=== PATIENT | male | born 1945 | race Caucasian/White ===

== ENCOUNTER 2018-08-17 10:43 | Inpatient (IN) | payer MEDICARE, MEDICAID ==
[~2018-08-17] VITALS: Ht 170.2 cm; Wt 65.8 kg
[2018-08-17 11:00] LABS: BASOPHILS % (AUTO) 0.2 % (0.0-2.0); EOSINOPHILS % (AUTO) 24.5 % (0.0-6.0); HEMATOCRIT 33 % (39-51); HEMOGLOBIN 10.8 g/dL (13.5-17.5); LYMPHOCYTES % (AUTO) 12.7 % (20.0-44.0); MEAN CORPUSCULAR HGB CONC 33 g/dl (31.0-36.0); MEAN CORPUSCULAR VOLUME 94 fL (80-96); MONOCYTES # (AUTO) 0.8 /CMM (0.1-1.30); MONOCYTES % (AUTO) 10.1 % (2.0-12.0); NEUTROPHILS # (AUTO) 4.3 /CMM (1.8-8.9); NEUTROPHILS % (AUTO) 52.5 % (43.0-81.0); PLATELET COUNT (AUTO) 241 /CMM (150-450); RED BLOOD CELL COUNT(AUTO) 3.49 MIL/uL (4.5-6.0); WHITE BLOOD COUNT (AUTO) 8.2 K/uL (4.3-11.0)
[2018-08-17] MEDS ORDERED: TEMA7.5C12 PO (11:01)
[2018-08-17] MEDS ORDERED: LORA1TAB PO (11:01)
[2018-08-17] MEDS ORDERED: MULT-24 PO (11:01)
[2018-08-17] MEDS ORDERED: METO25TA20 PO (11:01)
[2018-08-17] MEDS ORDERED: MAGN400O6 PO (11:01)
[2018-08-17] MEDS ORDERED: MAG30ORA PO (11:01)
[2018-08-17] MEDS ORDERED: TAMS-12 PO (11:01)
[2018-08-17] MEDS ORDERED: LOPE2CAP40 PO (11:01)
[2018-08-17] MEDS ORDERED: ACET-868 PO (11:01)
[2018-08-17] MEDS ORDERED: RISP0.253 PO (11:01)
[2018-08-17] MEDS ORDERED: AMLO5TAB9 PO (11:01)
[2018-08-17] MEDS ORDERED: NICO-676 TD (11:01)
[2018-08-17 11:07] LABS: CALCIUM, SERUM 8.1 mg/dL (8.5-10.1); CARBON DIOXIDE 29 mmol/L (21-32); CHLORIDE 109 mmol/L (98-107); CREATININE 0.8 mg/dL (0.6-1.3); GLUCOSE 97 mg/dL (74-106); POTASSIUM 4.2 mmol/L (3.5-5.1); SODIUM SERUM 143 mmol/L (136-145); UREA NITROGEN, BLOOD 17 mg/dL (7-18)
--- NOTE | 2018-08-17 11:12 | NUR ---
DIANA, FROM SNF, INCREASED AGITATION, DANGER TO SELF AND OTHERS. REFUSED AM MEDICATIONS. PT IS AMB, VSS, RR EVEN AND UNLABORED. SKIN INTACT, NO ACUTE DISTRESS NOTED. DENIES SOB, DIZZINESS, WEAKNESS, N/V. SEEN BY DR RONQUILLO.
[2018-08-17 11:13] LABS: ACETAMINOPHEN 1 ug/ml (10-30); ALANINE AMINOTRANSFERASE 17 U/L (12-78); ALBUMIN 2.8 g/dL (3.4-5.0); ALCOHOL, BLOOD < 3 mg/dL (0-0); ALKALINE PHOSPHATASE 76 U/L (46-116); ASPARTATE AMINOTRANSFERASE 10 U/L (15-37); BILIRUBIN,DIRECT 0.1 mg/dL (0.0-0.2); BILIRUBIN,TOTAL 0.2 mg/dL (0.2-1.0); SALICYLATE 0.8 mg/dL (2.8-20.0); TOTAL PROTEIN, SERUM 5.9 g/dL (6.4-8.2)
--- NOTE | 2018-08-17 11:28 | NUR ---
CALLED GEOPHYSICAL E LOGGER HEAD WRESTLING COACH FOR PSYCH EVAL
--- NOTE | 2018-08-17 11:53 | NUR ---
URINE SENT TO STAT LAB
--- NOTE | 2018-08-17 11:55 | NUR ---
CALLED DIETARY. THEY WILL SEND SOFT DIET MEAL AFTER THEIR MEAL BREAK ENDS
[2018-08-17 12:04] LABS: APPEARANCE,URINE Clear (CLEAR); BILIRUBIN,URINE Negative (NEGATIVE); BLOOD, URINE Trace-intact Ery/uL (NEGATIVE); COLOR,URINE Yellow (YELLOW); KETONES,URINE Negative (NEGATIVE); LEUKOCYTE ESTERASE ,URINE Negative (NEGATIVE); NITRITE, URINE Negative (NEGATIVE); PROTEIN,URINE Negative (NEGATIVE); UGLUCOSE Negative (NEGATIVE); UROBILINOGEN,URINE 0.2 EU/dL (0.2)
--- NOTE | 2018-08-17 12:17 | NUR ---
FOOD TRAY PROVIDED, PT IS CALM AND COOPERATIVE. NO COMPLAINTS AT THIS TIME. WILL CONT TO MONITOR.
[2018-08-17 12:19] LABS: BACTERIA,URINE None seen /HPF (None Seen); RBC,URINE 0-2 /HPF (0-2); SQUAMOUS EPITHELIAL CELL,UR Few /HPF (None Seen); WBC,URINE 0-2 /HPF (0-3)
[2018-08-17 12:34] LABS: EOSINOPHILS % (MANUAL) 27 % (0-4); LYMPHOCYTES % (MANUAL) 10 % (16-48); MONOCYTES % (MANUAL) 8 % (0-11.0); NEUTROPHILS % (MANUAL) 55 (42-76)
--- NOTE | 2018-08-17 12:58 | NUR ---
GPS BED GIVEN 212A
--- NOTE | 2018-08-17 13:10 | NUR ---
LEFT MESSAGE FOR DISTRICT ATTORNEY ADULT PROTECTIVE CASEWORKER ABOUT ETA. AWAITING HIS CALL BACK
--- NOTE | 2018-08-17 13:20 | NUR ---
SHANIA CALLED TO INFROM ER THAT SPORTS STATISTICIAN CLINICIAN WILL ARRIVE AFTER HE FINISHES A FIELD CALL.
--- NOTE | 2018-08-17 13:39 | NUR ---
LOW HEEL BUILDER CLINICIAN CALLED TO INFORM ER THAT HE WAS STILL ON HIS FIELD CALL AND WOULD ARRIVE ONCE HE WAS FINISHED
--- NOTE | 2018-08-17 14:06 | NUR ---
Patient is resting comfortably in bed with eyes closed. Easily aroused. VSS
[2018-08-17] MEDS ORDERED: OLANZAPINE 5 MG TABLET PO ONE (14:30)
--- NOTE | 2018-08-17 14:30 | NUR ---
PT SPITTING AT ME WHEN TRYING TO GIVE PO MEDICATION. REQUEST IM ROUTE FROM .
[2018-08-17] MEDS ORDERED: OLANZAPINE 5 MG TABLET ONE (14:33)
[2018-08-17] MEDS ORDERED: OLANZAPINE 10 MG VIAL IM ONE (14:38)
--- NOTE | 2018-08-17 14:50 | NUR ---
ZYPREXA 5MG GIVEN IM LEFT VASTUS LATERALIS PER MD ORDER. ORDER NOT SHOWING IN eMAR.
--- NOTE | 2018-08-17 17:10 | NUR ---
report given to tiago ignacio f or olivia; pt will be transported to gps via [facility] with emt
[2018-08-17] MEDS ORDERED: risperiDONE 0.25 MG TABLET PO SCH (17:30)
[2018-08-17] MEDS ORDERED: MAG HYDROX/AL HYDROX/SIMETH 30 ML UDC PO PRN ×2 (17:30→18:00)
[2018-08-17] MEDS ORDERED: MAGNESIUM HYDROXIDE 30 ML UDC PO PRN ×2 (17:30→18:00)
[2018-08-17] MEDS: TAMSULOSIN 0.4 MG CAP.SR.24H PO SCH (17:30)
[2018-08-17] MEDS ORDERED: LOPERAMIDE HCL (2 MG CAP) 2 MG CAPSULE PO PRN (17:30)
[2018-08-17] MEDS ORDERED: ACETAMINOPHEN 325 MG TABLET PO PRN (18:00)
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
--- NOTE | 2018-08-17 19:30 | NUR ---
GPS RN NOTE, RECEIVED PATIENT AWAKE AND IN ROOM NO S/S OR COMPLAINTS OF PAIN AT THIS TIME. PATIENT IS DISPLAYING NO S/S OF APPARENT DISTRESS AT THIS TIME. PATIENT BREATHING IS UNLABORED WITH EQUAL RISE AND FALL OF THE CHEST. PATIENT IS ALERT AND ORIENTED X 1 ON ROOM AIR WITH A SPO2 0F 99%. PATIENT IS MED COMPLIANT, DISORGANIZED, DEPRESSED, COOPERATIVE, AND NEEDS REORIENTATION. PATIENT DENIES SUICIDE AND HOMICIDAL IDEATIONS AT THIS TIME. PATIENT ASSISTED WITH TURNING AND REPOSITIONING Q2HR AND PRN FOR COMFORT AND CIRCULATION. PATIENT HAS NO NEEDS AT THIS TIME. PATIENT EDUCATED ON THE USE OF THE CALL RODRIGUEZ. PATIENT BED SIDE RAILS ARE UP X 2 FOR SAFETY, BED IS LOCKED AND LOW. WILL CONTINUE TO MONITOR AND MAINTAIN SAFETY Q15 MIN WITH THE HELP OF STAFF.
[2018-08-17 19:36] VITALS: BP 146/88
[2018-08-18 08:00] VITALS: BP 143/82
[2018-08-18] MEDS: MULTIVITAMINS,THERAGRAN 1 UDTAB TABLET PO SCH (09:15)
[2018-08-18] MEDS: NICOTINE PATCH (14MG) 14 MG PATCH.TD24 TD SCH (09:15)
[2018-08-18] MEDS: TAMSULOSIN 0.4 MG CAP.SR.24H PO SCH ×2 (09:16→17:49)
[2018-08-18] MEDS: ACETAMINOPHEN 325 MG TABLET PO PRN (09:16)
[2018-08-18] MEDS: METOPROLOL TARTRATE 25 MG TABLET PO SCH ×2 (09:16→17:49)
[2018-08-18] MEDS: AMLODIPINE BESYLATE 5 MG TABLET PO SCH (09:16)
--- NOTE | 2018-08-18 09:22 | NUR ---
GPS/RN-NOTES PATIENT REQUESTING TYLENOL FOR BACK PAIN. TYLENOL 650MG P.O GIVEN PRN ORDER.
[2018-08-18 09:28] LABS: ALANINE AMINOTRANSFERASE 25 U/L (12-78); ALBUMIN 3.1 g/dL (3.4-5.0); ALKALINE PHOSPHATASE 76 U/L (46-116); ASPARTATE AMINOTRANSFERASE 17 U/L (15-37); BILIRUBIN,TOTAL 0.3 mg/dL (0.2-1.0); CALCIUM, SERUM 8.2 mg/dL (8.5-10.1); CARBON DIOXIDE 27 mmol/L (21-32); CHLORIDE 107 mmol/L (98-107); CREATININE 0.8 mg/dL (0.6-1.3); GLUCOSE 81 mg/dL (74-106); SODIUM SERUM 144 mmol/L (136-145); TOTAL PROTEIN, SERUM 6.5 g/dL (6.4-8.2); UREA NITROGEN, BLOOD 21 mg/dL (7-18)
[2018-08-18 09:47] LABS: CHOLESTEROL 141 mg/dL (<200); HDL CHOLESTEROL 45 mg/dL (40-60); LDL 89 mg/dL (0-99); TRIGLYCERIDES 66 mg/dL (30-150)
[2018-08-18] MEDS: LORAZEPAM 0.5 MG TABLET PO PRN ×2 (09:56→22:25)
--- NOTE | 2018-08-18 10:01 | NUR ---
GPS/RN-NOTES PATIENT STATED" I NEED MY ATIVAN TO CALM ME DOWN,I'M VERY ANXIOUS". ATIVAN 1MG P.O GIVEN PRN ORDER. WILL CONT. MONITORING FOR SAFETY AND BEHAVIOR.
--- NOTE | 2018-08-18 10:45 | NUR ---
LEW called the number on the face sheet ([phone]) to find out what the relationship is to the pt because there was no name for the number. When the SW called, she found out that the number listed was for [facility].
[2018-08-18 16:00] VITALS: BP 111/70
[2018-08-18] MEDS ORDERED: HALOPERIDOL 1 MG TABLET PO SCH (17:00)
[2018-08-18] MEDS: DIVALPROEX SODIUM 250 MG TABLET.DR PO SCH ×2 (17:00→17:49)
[2018-08-18] MEDS: BENZTROPINE MESYLATE (1 MG) 1 MG TABLET PO SCH ×2 (17:00→17:49)
--- NOTE | 2018-08-18 17:34 | NUR ---
GPS/RN-NOTES HALDOL 2MG P.O NOT ADMINISTER AT THIS TIME DUE TO HALDOL TABLETS IS OUT OF STOCK PER PHARMACY ( [facility]) SHE WILL CHANGE IT TO LIQUID.
--- NOTE | 2018-08-18 17:53 | NUR ---
GPS/RN-NOTES PATIENT REFUSED DEPAKOTE 250MG AND COGENTIN 0.5MG P.O. STATED" I DON'T NEED THESE MEDICATIONS". EXPLAINED RISK AND BENEFITS BUT PATIENT STILL REFUSED.OFFERED X3
[2018-08-18] MEDS: LIDOCAINE 5% (PATCH) 1 EA PATCH TP SCH (18:49)
[2018-08-18 19:58] VITALS: BP 145/85
[2018-08-18] MEDS: TEMAZEPAM 7.5 MG CAPSULE PO PRN (21:19)
[2018-08-19 08:00] VITALS: BP 110/60
[2018-08-19] MEDS: BENZTROPINE MESYLATE (1 MG) 1 MG TABLET PO SCH ×3 (09:00→16:51)
[2018-08-19] MEDS: MULTIVITAMINS,THERAGRAN 1 UDTAB TABLET PO SCH (09:00)
[2018-08-19] MEDS: HALOPERIDOL LACTATE 10 MG/5 ML UDC PO SCH ×3 (09:00→16:51)
[2018-08-19] MEDS: DIVALPROEX SODIUM 250 MG TABLET.DR PO SCH ×3 (09:00→16:51)
[2018-08-19] MEDS: METOPROLOL TARTRATE 25 MG TABLET PO SCH ×2 (09:11→16:51)
[2018-08-19] MEDS: TAMSULOSIN 0.4 MG CAP.SR.24H PO SCH ×2 (09:12→16:51)
[2018-08-19] MEDS: NICOTINE PATCH (14MG) 14 MG PATCH.TD24 TD SCH (09:13)
[2018-08-19] MEDS: AMLODIPINE BESYLATE 5 MG TABLET PO SCH (09:29)
[2018-08-19] MEDS: LORAZEPAM 0.5 MG TABLET PO PRN ×2 (09:49→16:55)
--- NOTE | 2018-08-19 11:37 | NUR ---
GPS RN NOTED : RECEIVED PATIENT AWAKE,IN THE DINNING ROOM INTERACTING WITH PEERS.PT REQUEST ATIVAN 1 MG PO PRN DUE TO ANXIETY, REFUSED ALL PSYCH MEDICATIONS . ALL NEEDS ATTENDED AND ANTICIPATED. WILL CONT. MONITORING Q15 MINS. FOR SAFETY AND BEHAVIOR.
--- NOTE | 2018-08-19 13:50 | NUR ---
Group note: Pt attended a group session on 08/19/18 at 11AM discussing the topic of what their goals are for when they are in the hospital and once they are discharged. S: Pt stated, I lost my identity in the last couple of years and I want to work on regaining who I was. O: Pt was present during the group session and was cooperative. Pt appeared to be in a depressed mood and presented with a calm affect. Pt maintained appropriate eye contact and tone of voice throughout the group. Pt was engaged with the rest of the group members. A: Pt understood that he needs to get back into a life pattern that he had before he can feel like his old self once again. P: Pt will continue milieu treatment and medication stabilization.
[2018-08-19 16:00] VITALS: BP 119/54
[2018-08-19] MEDS: LIDOCAINE 5% (PATCH) 1 EA PATCH TP SCH (18:53)
[2018-08-19 19:54] VITALS: BP 124/74
[2018-08-19] MEDS: TEMAZEPAM 7.5 MG CAPSULE PO PRN (21:29)
[2018-08-20 08:00] VITALS: BP 131/81
[2018-08-20] MEDS: HALOPERIDOL LACTATE 10 MG/5 ML UDC PO SCH ×3 (09:03→16:56)
[2018-08-20] MEDS: DIVALPROEX SODIUM 250 MG TABLET.DR PO SCH ×3 (09:04→16:56)
[2018-08-20] MEDS: METOPROLOL TARTRATE 25 MG TABLET PO SCH ×2 (09:04→17:10)
[2018-08-20] MEDS: BENZTROPINE MESYLATE (1 MG) 1 MG TABLET PO SCH ×3 (09:04→16:56)
[2018-08-20] MEDS: TAMSULOSIN 0.4 MG CAP.SR.24H PO SCH ×2 (09:04→16:56)
[2018-08-20] MEDS: AMLODIPINE BESYLATE 5 MG TABLET PO SCH (09:05)
[2018-08-20] MEDS: NICOTINE PATCH (14MG) 14 MG PATCH.TD24 TD SCH (09:05)
[2018-08-20] MEDS: MULTIVITAMINS,THERAGRAN 1 UDTAB TABLET PO SCH (09:05)
[2018-08-20] MEDS: LORAZEPAM 0.5 MG TABLET PO PRN ×3 (09:12→20:09)
--- NOTE | 2018-08-20 09:12 | NUR ---
rn notes administered ativan 1 mg po prn for anxiety per patient request, v/s taken bp 131/84, p-84, continued monitoring.
[2018-08-20] MEDS: ACETAMINOPHEN 325 MG TABLET PO PRN ×2 (09:58→15:31)
--- NOTE | 2018-08-20 09:58 | NUR ---
rn notes administered tylenol 650 mg po prn for generalized pain 5/10 per patient request. continued monitoring.
--- NOTE | 2018-08-20 12:35 | NUR ---
Initial Discharge Plan: [facility] located at [address] [place] [id number]; ([phone]). Per pt, he would not like to return there. SW will work with the pt and the MD regarding appropriate discharge planning. SW will form a safe and proper discharge.
--- NOTE | 2018-08-20 15:30 | NUR ---
rn notes administered ativan 1 mg po prn for anxiety, and tylenol 650 mg po prn for generalized pain per patient request. v/s stable. continued monitoring.
[2018-08-20 16:00] VITALS: BP 121/60
[2018-08-20] MEDS: HYDROCODONE/APAP 5/325MG 1 EACH TABLET PO PRN (18:01)
--- NOTE | 2018-08-20 18:01 | NUR ---
RN NOTES ADMINISTERED NARCO 5/325 MG PO PRN FOR CHRONIC GENERALIZED PAIN 03/11 PER PATIENT REQUEST, V/S TAKEN BP -125/ 72, P-94. CONTINUED MONITORING.
[2018-08-20] MEDS: LIDOCAINE 5% (PATCH) 1 EA PATCH TP SCH (18:47)
[2018-08-20 20:00] VITALS: BP 117/71
[2018-08-20] MEDS: TEMAZEPAM 7.5 MG CAPSULE PO PRN (20:47)
[2018-08-21 08:00] VITALS: BP 131/73
[2018-08-21] MEDS: AMLODIPINE BESYLATE 5 MG TABLET PO SCH (09:39)
[2018-08-21] MEDS: DIVALPROEX SODIUM 250 MG TABLET.DR PO SCH ×3 (09:39→17:59)
[2018-08-21] MEDS: MULTIVITAMINS,THERAGRAN 1 UDTAB TABLET PO SCH (09:39)
[2018-08-21] MEDS: NICOTINE PATCH (14MG) 14 MG PATCH.TD24 TD SCH (09:39)
[2018-08-21] MEDS: HALOPERIDOL LACTATE 10 MG/5 ML UDC PO SCH ×3 (09:40→17:59)
[2018-08-21] MEDS: BENZTROPINE MESYLATE (1 MG) 1 MG TABLET PO SCH ×3 (09:40→17:59)
[2018-08-21] MEDS: TAMSULOSIN 0.4 MG CAP.SR.24H PO SCH ×2 (09:40→17:59)
[2018-08-21] MEDS: METOPROLOL TARTRATE 25 MG TABLET PO SCH ×2 (09:40→17:00)
[2018-08-21] MEDS: HYDROCODONE/APAP 5/325MG 1 EACH TABLET PO PRN ×2 (11:35→18:36)
--- NOTE | 2018-08-21 15:26 | NUR ---
LEW faxed a referral to [facility] with attention to Stefanie to the fax number: [phone].
[2018-08-21 16:00] VITALS: BP 100/59
[2018-08-21] MEDS: LIDOCAINE 5% (PATCH) 1 EA PATCH TP SCH (18:36)
--- NOTE | 2018-08-21 19:51 | NUR ---
RN NOTES: SITTING COMFORTABLY ON THE BED SIDE, ASSESSED FOR PAIN HE SAID STILL 6/10, EATING HIS JELLO. NON PHARMACOLOGIC INTERVENTION RENDERED.
[2018-08-21 20:00] VITALS: BP 107/63
[2018-08-21] MEDS: LORAZEPAM 0.5 MG TABLET PO PRN (20:27)
--- NOTE | 2018-08-21 20:28 | NUR ---
RN NOTES: AMBULATE USING FWW TO THE TV ROOM, ATIVAN GIVEN PER PATIENT REQUEST, HE SAID"NO SLEEPING PILL TONIGHT ILL TRY TO SLEEP WITHOUT IT", RESPECT PATIENT REQUEST.ACCOMPANIED BACK TO HIS ROOM, MADE COMFORTABLE IN BED.
[2018-08-21] MEDS: TEMAZEPAM 7.5 MG CAPSULE PO PRN (22:55)
--- NOTE | 2018-08-21 22:56 | NUR ---
RN NOTES: LYING ON BED TRYING TO SLEEP, HE WENT TO BATHROOM TO E, WHEN HE RETUNED HE REQUEST FOR HIS SLEEPING PILL, "I WANT RESTORIL 7.5 MG ONLY, DO NOT GIVE ME 2 CAPSULE, I WANT 1 CAPSULE ONLY", CHARGE NURSE NOTIFIED PATIENT, TOOK 1 CAP IN CUBIX, GIVEN RESTORIL 7.5 MG 1 CAP PER PATIENT REQUEST.
--- NOTE | 2018-08-21 23:57 | NUR ---
RN NOTES: LATE ENTRY FOR 2102: CAME AND SEE THE PATIENT, NOTIFIED PATIENT WAS COOPERATIVE, NO SIGN OF AGITATION OR RESISTANCE, HE TOOK HIS MEDICATION. NO NEW ORDERS. Addendum: 08/22/18 at 0218 by DINORA BRANHAM RN -FOR SERUM DEPAKOTE LEVEL TOMORROW BEFORE MORNING DOSE.
[2018-08-22] MEDS: HYDROCODONE/APAP 5/325MG 1 EACH TABLET PO PRN ×3 (01:57→15:50)
--- NOTE | 2018-08-22 02:02 | NUR ---
RN NOTES: -AWAKE WENT TO THE NURSES STATION, AMBULATORY,ASKING FOR HIS PAIN MEDICATION, /, GENERALIZED,NORCO PRN GIVEN, THEN HE REQUEST TO HAVE SNACK, TUNA SANDWICH GIVEN PER PATIENT REQUEST.NON PHARMACOLOGIC INTERVENTION RENDERED.
--- NOTE | 2018-08-22 02:58 | NUR ---
RN NOTES: ABLE TO SLEEP AND REST, AFEBRILE [id number]%RA,SLEEPING COMFORTABLY IN BED,ON CLOSE WATCH.BED LOW AND LOCKED.FALL PRECAUTION OBSERVED.
[2018-08-22 08:00] VITALS: BP 122/76
[2018-08-22] MEDS ORDERED: OXYB5TAB PO (09:11)
[2018-08-22] MEDS ORDERED: LEVO100T9 PO (09:11)
[2018-08-22] MEDS ORDERED: FINA5TAB11 PO (09:11)
[2018-08-22] MEDS: HALOPERIDOL LACTATE 10 MG/5 ML UDC PO SCH ×3 (09:13→17:29)
[2018-08-22] MEDS: MULTIVITAMINS,THERAGRAN 1 UDTAB TABLET PO SCH (09:13)
[2018-08-22] MEDS: NICOTINE PATCH (14MG) 14 MG PATCH.TD24 TD SCH (09:13)
[2018-08-22] MEDS: AMLODIPINE BESYLATE 5 MG TABLET PO SCH (09:15)
[2018-08-22] MEDS: BENZTROPINE MESYLATE (1 MG) 1 MG TABLET PO SCH ×3 (09:15→17:29)
[2018-08-22] MEDS: METOPROLOL TARTRATE 25 MG TABLET PO SCH ×2 (09:16→17:00)
[2018-08-22] MEDS: TAMSULOSIN 0.4 MG CAP.SR.24H PO SCH ×2 (09:20→17:29)
[2018-08-22] MEDS: DIVALPROEX SODIUM 250 MG TABLET.DR PO SCH ×3 (09:27→17:29)
[2018-08-22] MEDS: LORAZEPAM 0.5 MG TABLET PO PRN ×2 (13:55→20:17)
[2018-08-22] MEDS: FINASTERIDE (5 MG) 5 MG TABLET PO SCH (15:21)
[2018-08-22] MEDS: LEVOTHYROXINE SODIUM 100 MCG TABLET PO SCH (15:21)
[2018-08-22] MEDS: OXYBUTYNIN CHLORIDE ER 5 MG TAB PO SCH (15:21)
[2018-08-22 16:00] VITALS: BP 100/60
[2018-08-22] MEDS: LIDOCAINE 5% (PATCH) 1 EA PATCH TP SCH (18:51)
[2018-08-22 20:00] VITALS: BP 102/50
--- NOTE | 2018-08-22 20:20 | NUR ---
RN NOTES COMPLAINED OF FEELING ANXIOUS AND ASKING FOR ATIVAN- ATIVAN 1MG PO GIVEN PO ORDERED, V/S STABLE
[2018-08-22] MEDS: TEMAZEPAM 7.5 MG CAPSULE PO PRN (21:43)
--- NOTE | 2018-08-22 22:11 | NUR ---
RN NOTES PT. ASKED FOR SLEEPING PILL- RESTORIL 7.5MG PO GIVEN, ORDERED WAS 15MG BUT PT. TOOK ONLY 1 PILL, V/S STABLE
[2018-08-23] MEDS: HYDROCODONE/APAP 5/325MG 1 EACH TABLET PO PRN ×3 (01:06→15:19)
--- NOTE | 2018-08-23 01:06 | NUR ---
RN NOTES PT. ASKED FOR NORCO- NORCO 5/325MG PO GIVEN ORDERED, V/S STABLE
--- NOTE | 2018-08-23 07:08 | NUR ---
GPS RN INITIAL NOTES Report received at bedside. Patient received in bed, awake and responsive. No signs and symptoms of distress. No SOB noted. Denies any pain. Safety measures in place. Will continue to monitor and assess patient.
[2018-08-23 08:00] VITALS: BP 112/76
[2018-08-23] MEDS: MULTIVITAMINS,THERAGRAN 1 UDTAB TABLET PO SCH (09:00)
[2018-08-23] MEDS: NICOTINE PATCH (14MG) 14 MG PATCH.TD24 TD SCH (09:01)
[2018-08-23] MEDS: BENZTROPINE MESYLATE (1 MG) 1 MG TABLET PO SCH ×3 (09:01→16:50)
[2018-08-23] MEDS: AMLODIPINE BESYLATE 5 MG TABLET PO SCH (09:01)
[2018-08-23] MEDS: OXYBUTYNIN CHLORIDE ER 5 MG TAB PO SCH (09:01)
[2018-08-23] MEDS: DIVALPROEX SODIUM 250 MG TABLET.DR PO SCH ×3 (09:02→16:50)
[2018-08-23] MEDS: HALOPERIDOL LACTATE 10 MG/5 ML UDC PO SCH ×3 (09:02→16:50)
[2018-08-23] MEDS: METOPROLOL TARTRATE 25 MG TABLET PO SCH ×2 (09:02→16:50)
[2018-08-23] MEDS: FINASTERIDE (5 MG) 5 MG TABLET PO SCH (09:02)
[2018-08-23] MEDS: LEVOTHYROXINE SODIUM 100 MCG TABLET PO SCH (09:02)
[2018-08-23] MEDS: TAMSULOSIN 0.4 MG CAP.SR.24H PO SCH ×2 (09:02→16:50)
--- NOTE | 2018-08-23 09:12 | NUR ---
GPS RN NOTES Patient refused MVI. Patient stated, "vitamins gives me diarrhea. Unless you want me to have diarrhea?' Explained risks vs benefits. Offered x3 but continued to refused.
[2018-08-23] MEDS: LORAZEPAM 0.5 MG TABLET PO PRN ×2 (12:32→20:19)
[2018-08-23 16:00] VITALS: BP 122/68
[2018-08-23] MEDS: LIDOCAINE 5% (PATCH) 1 EA PATCH TP SCH (18:03)
--- NOTE | 2018-08-23 18:04 | NUR ---
GPS RN NOTES - Neelima Ardon Neelima Ardon (Sister) called to get an update regarding the patient. Informed the sister to call tomorrow and try to speak with social media specialist to get updates with resources assistance after discharge. Informed that I cannot give information over the phone since there is no assigned DPOA. Adviced sister to come to the hospital and speak to psych MD and social media specialist for more information. verbalized that she is not ready for her sister to come home and that she is scared that the patient is not ready nor safe to be discharge soon. Charge nurse aware of 's concern. Will endorse to [facility] shift nurse. Neelima Ardon [phone] PLEASE GIVE NEELIMA SARMIENTO HEADS UP PRIOR TO PT DISCHARGE. TY! Addendum: 08/23/18 at 1837 by MANISHA ARIZA RN W R O N G P A T I E N T
--- NOTE | 2018-08-23 18:29 | NUR ---
GPS RN CLOSING NOTES Patient remained in bed, intermittently sleeping, easily aroused. All due meds given and tolerated. No signs and symptoms of distress/side effects noted. No SOB noted. Kept patient clean, dry and comfortable. Continuous monitoring for safety and behavior. Safety measures in place. Call doe at bedside. Bed in lowest position with bed alarm on. Will endorse to oncoming shift nurse.
[2018-08-23 20:13] VITALS: BP 113/70
[2018-08-23] MEDS: TEMAZEPAM 7.5 MG CAPSULE PO PRN (20:54)
[2018-08-24 08:00] VITALS: BP 113/78
[2018-08-24] MEDS: LEVOTHYROXINE SODIUM 100 MCG TABLET PO SCH (08:43)
[2018-08-24] MEDS: FINASTERIDE (5 MG) 5 MG TABLET PO SCH (08:43)
[2018-08-24] MEDS: HALOPERIDOL LACTATE 10 MG/5 ML UDC PO SCH ×3 (08:44→17:18)
[2018-08-24] MEDS: BENZTROPINE MESYLATE (1 MG) 1 MG TABLET PO SCH ×3 (08:44→17:21)
[2018-08-24] MEDS: TAMSULOSIN 0.4 MG CAP.SR.24H PO SCH ×2 (08:44→17:19)
[2018-08-24] MEDS: DIVALPROEX SODIUM 250 MG TABLET.DR PO SCH ×2 (08:45→13:00)
[2018-08-24] MEDS: MULTIVITAMINS,THERAGRAN 1 UDTAB TABLET PO SCH (08:46)
[2018-08-24] MEDS: OXYBUTYNIN CHLORIDE ER 5 MG TAB PO SCH (08:46)
[2018-08-24] MEDS: NICOTINE PATCH (14MG) 14 MG PATCH.TD24 TD SCH (08:54)
[2018-08-24] MEDS: METOPROLOL TARTRATE 25 MG TABLET PO SCH ×2 (09:00→17:19)
[2018-08-24] MEDS: AMLODIPINE BESYLATE 5 MG TABLET PO SCH (09:00)
--- NOTE | 2018-08-24 13:15 | NUR ---
Daniela ([phone] ext [phone]) from [facility] called the SW and stated that the pt cannot be accepted to their facility due to noncompliance.
--- NOTE | 2018-08-24 13:25 | NUR ---
LEW called Nila ([phone]) from [facility] and she stated that the pt is welcome to return to their facility if he has shown improvement. LEW stated that she would send an updated inquiry at the time of discharge.
[2018-08-24] MEDS: HYDROCODONE/APAP 5/325MG 1 EACH TABLET PO PRN ×2 (15:18→22:04)
--- NOTE | 2018-08-24 15:19 | NUR ---
RN NOTE :PATIENT C/O PAIN GENERALIZE PAIN MEDICATED WITH NORCO WILL CONTINUE TO MONITOR .
[2018-08-24 16:00] VITALS: BP 142/85
[2018-08-24] MEDS ORDERED: HALOPERIDOL 1 MG TABLET PO SCH (17:00)
[2018-08-24] MEDS: LORAZEPAM 0.5 MG TABLET PO PRN (18:01)
--- NOTE | 2018-08-24 18:02 | NUR ---
RN NOTE:MEDICATED WITH ATIVAN 1MG X1 FOR ANXIETY ,WILL CONTINUE TO MONITOR .
[2018-08-24] MEDS: LIDOCAINE 5% (PATCH) 1 EA PATCH TP SCH (18:47)
[2018-08-24 19:46] VITALS: BP 130/77
[2018-08-24] MEDS: DIVALPROEX SODIUM 500 MG TABLET.DR PO SCH (21:20)
[2018-08-24] MEDS: TEMAZEPAM 7.5 MG CAPSULE PO PRN (21:32)
[2018-08-25] MEDS: LORAZEPAM 0.5 MG TABLET PO PRN ×3 (00:28→18:42)
[2018-08-25 08:00] VITALS: BP 100/59
[2018-08-25] MEDS: BENZTROPINE MESYLATE (1 MG) 1 MG TABLET PO SCH ×3 (08:42→17:38)
[2018-08-25] MEDS: DIVALPROEX SODIUM 250 MG TABLET.DR PO SCH ×2 (08:43→13:51)
[2018-08-25] MEDS: TAMSULOSIN 0.4 MG CAP.SR.24H PO SCH ×2 (08:43→17:37)
[2018-08-25] MEDS: METOPROLOL TARTRATE 25 MG TABLET PO SCH ×2 (08:43→17:38)
[2018-08-25] MEDS: OXYBUTYNIN CHLORIDE ER 5 MG TAB PO SCH (08:44)
[2018-08-25] MEDS: MULTIVITAMINS,THERAGRAN 1 UDTAB TABLET PO SCH (08:44)
[2018-08-25] MEDS: LEVOTHYROXINE SODIUM 100 MCG TABLET PO SCH (08:44)
[2018-08-25] MEDS: FINASTERIDE (5 MG) 5 MG TABLET PO SCH (08:44)
[2018-08-25] MEDS: AMLODIPINE BESYLATE 5 MG TABLET PO SCH (08:44)
--- NOTE | 2018-08-25 08:44 | NUR ---
RN NOTE:MEDICATED WITH ATIVAN 1MG X1 FOR ANXIETY ,WILL CONTINUE TO MONITOR .
[2018-08-25] MEDS: NICOTINE PATCH (14MG) 14 MG PATCH.TD24 TD SCH (08:45)
[2018-08-25] MEDS: HALOPERIDOL LACTATE 10 MG/5 ML UDC PO SCH ×3 (08:45→17:37)
[2018-08-25] MEDS: HYDROCODONE/APAP 5/325MG 1 EACH TABLET PO PRN ×3 (11:05→21:39)
--- NOTE | 2018-08-25 11:05 | NUR ---
RN NOTE :PATIENT C/O PAIN GENERALIZE PAIN MEDICATED WITH NORCO WILL CONTINUE TO MONITOR .
--- NOTE | 2018-08-25 11:44 | NUR ---
LEW faxed a referral to [facility] with attention to Truong to the fax number: [phone].
--- NOTE | 2018-08-25 15:54 | NUR ---
RN NOTE :PATIENT C/O PAIN GENERALIZE PAIN MEDICATED WITH NORCO WILL CONTINUE TO MONITOR .
[2018-08-25 16:00] VITALS: BP 113/76
[2018-08-25] MEDS: LIDOCAINE 5% (PATCH) 1 EA PATCH TP SCH (17:37)
--- NOTE | 2018-08-25 18:42 | NUR ---
RN NOTE:MEDICATED WITH ATIVAN 1MG X1 FOR ANXIETY ,WILL CONTINUE TO MONITOR .
[2018-08-25 20:22] VITALS: BP 100/59
[2018-08-25] MEDS: TEMAZEPAM 7.5 MG CAPSULE PO PRN (21:39)
[2018-08-25] MEDS: DIVALPROEX SODIUM 500 MG TABLET.DR PO SCH (21:39)
[2018-08-26 08:00] VITALS: BP 125/79
[2018-08-26] MEDS: BENZTROPINE MESYLATE (1 MG) 1 MG TABLET PO SCH ×3 (08:41→16:04)
[2018-08-26] MEDS: AMLODIPINE BESYLATE 5 MG TABLET PO SCH (08:42)
[2018-08-26] MEDS: DIVALPROEX SODIUM 250 MG TABLET.DR PO SCH ×2 (08:42→12:28)
[2018-08-26] MEDS: OXYBUTYNIN CHLORIDE ER 5 MG TAB PO SCH (08:42)
[2018-08-26] MEDS: MULTIVITAMINS,THERAGRAN 1 UDTAB TABLET PO SCH (08:42)
[2018-08-26] MEDS: FINASTERIDE (5 MG) 5 MG TABLET PO SCH (08:42)
[2018-08-26] MEDS: LEVOTHYROXINE SODIUM 100 MCG TABLET PO SCH (08:43)
[2018-08-26] MEDS: METOPROLOL TARTRATE 25 MG TABLET PO SCH ×2 (08:43→16:04)
[2018-08-26] MEDS: TAMSULOSIN 0.4 MG CAP.SR.24H PO SCH ×2 (08:45→16:03)
[2018-08-26] MEDS: HALOPERIDOL LACTATE 10 MG/5 ML UDC PO SCH ×3 (08:45→16:05)
[2018-08-26] MEDS: HYDROCODONE/APAP 5/325MG 1 EACH TABLET PO PRN ×2 (08:52→16:04)
[2018-08-26] MEDS: NICOTINE PATCH (14MG) 14 MG PATCH.TD24 TD SCH (08:55)
[2018-08-26] MEDS: LORAZEPAM 0.5 MG TABLET PO PRN ×2 (12:29→20:37)
--- NOTE | 2018-08-26 13:48 | NUR ---
Pt's psychiatrist, Dr. Kent, and the SW went into the pt's room to speak to him about his discharge plan. SW stated that she sent two referrals for the pt and the facilities have denied him. Pt stated that he does not want to return to the facility that he came from so SW and psychiatrist informed him that one more facility will be attempted and if not then the pt must return.
--- NOTE | 2018-08-26 13:50 | NUR ---
LEW faxed a referral to [facility] with attention to Alessandra with the fax number: [phone].
--- NOTE | 2018-08-26 14:47 | NUR ---
Group note: Pt attended a group session on 08/26/18 at 11AM discussing the topic of what their goals are for when they are in the hospital and once they are discharged. S: Pt stated, I want my independence back. I want to be able to choose where I will live, I want to be able to choose my own clothes, and I want to be able to do everything on my own. O: Pt was present during the group session and was cooperative. Pt appeared to be in a depressed mood and presented with an irritated affect. Pt did not maintain appropriate eye contact because he was looking down the whole time he was speaking and his tone of voice appeared to be angry throughout the group. A: Pt understood that he needs to get back into a life pattern that he had before he can feel like his old self once again. Pt understood that people are making decisions for him for his safety but once it is appropriate to do so he will make decisions for himself. P: Pt will continue milieu treatment and medication stabilization.
--- NOTE | 2018-08-26 14:52 | NUR ---
Alessandra ([phone]) from [facility] called the SW and stated that the pt was accepted to their facility.
[2018-08-26 16:00] VITALS: BP 129/83
[2018-08-26] MEDS: LIDOCAINE 5% (PATCH) 1 EA PATCH TP SCH (17:37)
[2018-08-26 20:14] VITALS: BP 120/58
[2018-08-26] MEDS: DIVALPROEX SODIUM 500 MG TABLET.DR PO SCH (21:21)
[2018-08-26] MEDS: TEMAZEPAM 7.5 MG CAPSULE PO PRN (21:21)
[2018-08-27] MEDS: HYDROCODONE/APAP 5/325MG 1 EACH TABLET PO PRN ×4 (00:37→20:52)
--- NOTE | 2018-08-27 07:45 | NUR ---
GPS RN NOTES RECEIVED PT LAYING IN BED, RESTING COMFORTABLY. PT AWAKE AND ALERT. RESPIRATIONS ARE EVEN AND UNLABORED, NOT IN ANY ACUTE DISTRESS NOTED. PT DENIES ANY PAIN AT THIS TIME, NO C/O SOB, N/V. NO IV ACCESS. PT ABLE TO MAKE NEEDS KNOWN. SAFETY MEASURES ARE IN PLACE. WILL MONITOR THROUGHOUT SHIFT FOR CONTINUITY OF CARE.
[2018-08-27 08:00] VITALS: BP 111/67
[2018-08-27] MEDS: LORAZEPAM 0.5 MG TABLET PO PRN ×3 (08:39→16:30)
[2018-08-27] MEDS: HALOPERIDOL LACTATE 10 MG/5 ML UDC PO SCH ×3 (08:40→16:21)
[2018-08-27] MEDS: DIVALPROEX SODIUM 250 MG TABLET.DR PO SCH ×2 (08:40→12:29)
[2018-08-27] MEDS: MULTIVITAMINS,THERAGRAN 1 UDTAB TABLET PO SCH (08:40)
[2018-08-27] MEDS: TAMSULOSIN 0.4 MG CAP.SR.24H PO SCH ×2 (08:40→16:20)
[2018-08-27] MEDS: OXYBUTYNIN CHLORIDE ER 5 MG TAB PO SCH (08:40)
[2018-08-27] MEDS: FINASTERIDE (5 MG) 5 MG TABLET PO SCH (08:40)
[2018-08-27] MEDS: LEVOTHYROXINE SODIUM 100 MCG TABLET PO SCH (08:40)
[2018-08-27] MEDS: METOPROLOL TARTRATE 25 MG TABLET PO SCH ×2 (08:41→16:31)
[2018-08-27] MEDS: BENZTROPINE MESYLATE (1 MG) 1 MG TABLET PO SCH ×3 (08:41→16:20)
[2018-08-27] MEDS: NICOTINE PATCH (14MG) 14 MG PATCH.TD24 TD SCH (08:41)
[2018-08-27] MEDS: AMLODIPINE BESYLATE 5 MG TABLET PO SCH (08:41)
--- NOTE | 2018-08-27 15:37 | NUR ---
SW spoke to the pt and informed him that [facility] accepted him and then stated that the SW will order his ambulance for 11:30AM.
--- NOTE | 2018-08-27 15:38 | NUR ---
LEW called Alessandra ([phone]) from [facility] and informed her that the pt will be discharged tomorrow and she stated that the pt will be in rm 16A.
[2018-08-27 16:00] VITALS: BP 113/66
[2018-08-27] MEDS: LIDOCAINE 5% (PATCH) 1 EA PATCH TP SCH (17:34)
[2018-08-27 20:00] VITALS: BP 114/65
[2018-08-27] MEDS: TEMAZEPAM 7.5 MG CAPSULE PO PRN (20:53)
[2018-08-27] MEDS: DIVALPROEX SODIUM 500 MG TABLET.DR PO SCH (21:00)
[2018-08-28 08:00] VITALS: BP 111/57
[2018-08-28] MEDS: TAMSULOSIN 0.4 MG CAP.SR.24H PO SCH (08:35)
[2018-08-28] MEDS: OXYBUTYNIN CHLORIDE ER 5 MG TAB PO SCH (08:35)
[2018-08-28] MEDS: MULTIVITAMINS,THERAGRAN 1 UDTAB TABLET PO SCH (08:35)
[2018-08-28] MEDS: FINASTERIDE (5 MG) 5 MG TABLET PO SCH (08:35)
[2018-08-28] MEDS: DIVALPROEX SODIUM 250 MG TABLET.DR PO SCH ×2 (08:35→12:33)
[2018-08-28] MEDS: LEVOTHYROXINE SODIUM 100 MCG TABLET PO SCH (08:35)
[2018-08-28] MEDS: NICOTINE PATCH (14MG) 14 MG PATCH.TD24 TD SCH (08:36)
[2018-08-28] MEDS: HALOPERIDOL LACTATE 10 MG/5 ML UDC PO SCH ×2 (08:36→12:32)
[2018-08-28 08:41] VITALS: BP 111/57
[2018-08-28] MEDS: METOPROLOL TARTRATE 25 MG TABLET PO SCH (08:41)
[2018-08-28] MEDS: AMLODIPINE BESYLATE 5 MG TABLET PO SCH (08:41)
[2018-08-28] MEDS: BENZTROPINE MESYLATE (1 MG) 1 MG TABLET PO SCH ×2 (08:46→12:33)
[2018-08-28] MEDS: HYDROCODONE/APAP 5/325MG 1 EACH TABLET PO PRN (08:48)
--- NOTE | 2018-08-28 08:48 | NUR ---
GPS/RN-NOTES PATIENT C/O 8/ LOWER BACK PAIN AND REQUESTING FOR NORCO. NORCO 5/325MG P.O GIVEN PRN ORDER. WILL CONT. MONITORING FOR SAFETY.
--- NOTE | 2018-08-28 09:32 | NUR ---
SW informed the pt that he will be discharged to [facility] today and he stated that the hospital found placement for him without his involvement. SW stated that he had informed her that he wanted placement that is not locked and the SW found placement according to that. She also stated that she sent many referrals and waited for a facility to accept him. She informed him that if he does not like the facility, then the pt has the right to leave.
--- NOTE | 2018-08-28 09:38 | NUR ---
DR. GOODMAN GAVE AN ORDER TO D/C HOLD AND D/C TO [facility], TO CONTINUE SAME MEDS INCLUDING PRN AND TO FOLLOW UP WITH PSYCH AND MEDICAL DOCTORS.
--- NOTE | 2018-08-28 12:57 | NUR ---
Discharge Note: Pt was discharged to [facility] ([facility]) located at [address] [place] [address]; ([phone]). She is being transported via [facility] (Trip #[id number]) at 11:30AM. There was no one to notify about this placement. Upon discharge, the pt appeared to be in a depressed mood and presented with a calm affect. Pt denied both suicidal and homicidal ideation as well as auditory and visual hallucinations. Pt was provided with smoking cessation referrals at the time of discharge. Pt will be under the care of his psychiatrist, Dr. Kent, located at [address] [place] [address]; ([phone]), and his bank boss, Dr. Valderrama, located at [address], [place] [address]; ([phone]). Smoking cessation referrals: [employer] 800-LUNGUSA [employer] [phone] Pt was referred to a phone meeting for Friday at 12pm called [employer] at the phone number: [phone].
--- NOTE | 2018-08-28 13:40 | NUR ---
GPS/RN-NOTES PATIENT DISCHARGE TO [facility] TODAY. DR. GOODMAN AND JUAN MANUEL BOONE AWARE AND AGREES OF DISCHARGE WITH ORDERS. REPORT WAS GIVEN TO ANGELES WILLIAMSON ( FACILITY ADMITTING STAFF). PATIENT DID NOT VERBALIZE SI/HI,DENIES VISUAL/AUDITORY HALLUCINATIONS AT THE TIME OF DISCHARGE.PATIENT REFUSED TO SIGN DISCHARGE PAPERS AND REFUSED FULL BODY ASSESSMENT DESPITE EXPLANATIONS OF HOSPITAL POLICIES. PATIENT LEFT THE UNIT IN STABLE CONDITION ALERT ORIENTED X2 NO ACUTE DISTRESS NOTED. WASHING MACHINE ASSEMBLER BY AMBULANCE VIA GURNEY WITH TWO STAFF ASSIST.NO FAMILY TO NOTIFY OF THE DISCHARGE.PATIENT LEFT THE UNIT WITH ALL BELONGINGS.
== END 2018-08-28 13:40 | DRG 885 ==
LOC: ER 10:50 → GPS 16:45
PROVIDERS: ADMIT Psychiatry & Neurology Psychiatry; ATTEND Internal Medicine
DX: F25.9 Schizoaffective disorder, unspecified (principal); E44.0 Moderate protein-calorie malnutrition; F29 Unspecified psychosis not due to a substance or known physiological condition; I10 Essential (primary) hypertension; D63.8 Anemia in other chronic diseases classified elsewhere; I25.10 Atherosclerotic heart disease of native coronary artery without angina pectoris; N40.0 Benign prostatic hyperplasia without lower urinary tract symptoms; F17.200 Nicotine dependence, unspecified, uncomplicated; G89.29 Other chronic pain; E86.0 Dehydration; R39.2 Extrarenal uremia
CPT/HCPCS: 36415; 80048-TC; 80053-TC; 80061-TC; 80076-TC; 80164-TC; 80305; 81000-TC; 85025-TC; 87081-TC; G0480; J3490

== ENCOUNTER 2020-08-27 01:18 | Inpatient (IN) | payer MEDICARE, OTHER ==
[~2020-08-27] VITALS: Ht 170.2 cm; Wt 68.0 kg
[~2020-08-27 01:18] MED LIST: ACET-868 PO; AMLO-212 PO; FINA5TAB11 PO; LEVO100T9 PO; LOPE2CAP40 PO; LORA1TAB PO; MAG30ORA PO; MAGN400O6 PO; METO25TA20 PO; MULT-24 PO; NICO-676 TD; OXYB-58 PO; RISP0.253 PO; TAMS-12 PO; TEMA7.5C12 PO
[2020-08-27 04:15] VITALS: BP 139/82
[2020-08-27] MEDS ORDERED: MAG HYDROX/AL HYDROX/SIMETH 30 ML UDC PO PRN (04:30)
[2020-08-27] MEDS ORDERED: ACETAMINOPHEN 325 MG TABLET PO PRN (04:30)
[2020-08-27] MEDS ORDERED: MAGNESIUM HYDROXIDE 30 ML UDC PO PRN (04:30)
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
[2020-08-27] MEDS ORDERED: QUET25TA PO (04:52)
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
[2020-08-27] MEDS ORDERED: BLOOD SUGAR DIAGNOSTIC 1 EACH STRIP IN ONE (05:00)
[2020-08-27] MEDS ORDERED: ACET-2605 PO (07:36)
[2020-08-27] MEDS ORDERED: BISA10SU11 RC (07:36)
[2020-08-27] MEDS ORDERED: NA P133E RC (07:36)
[2020-08-27] MEDS ORDERED: DOCU-141 PO (07:36)
--- NOTE | 2020-08-27 11:31 | NUR ---
RN NOTE PATIENT IS NON INTERACTIVE. NOT RESPONDING TO ANY QUESTIONS. LYING DOWN ON HIS BED THE WHOLE TIME. REFUSED PT EVAL.
--- NOTE | 2020-08-27 13:53 | NUR ---
RN NOTE PATIENT REFUSED MED. EXPLAINED ALL RISK AND BENEFITS.
[2020-08-27] MEDS ORDERED: POTASSIUM CHLORIDE 20 MEQ TAB.PRT.SR PO ONE (14:00)
[2020-08-27] MEDS: TAMSULOSIN 0.4 MG CAP.SR.24H PO SCH (16:23)
[2020-08-27] MEDS: AMLODIPINE BESYLATE 5 MG TABLET PO SCH (16:24)
[2020-08-27] MEDS: DOCUSATE SODIUM 100 MG CAPSULE PO SCH (16:24)
--- NOTE | 2020-08-27 16:33 | NUR ---
RN NOTE PATIENT REFUSED VS TO BE TAKEN. TOOK TAMSULOSIN BUT REFUSED COLACE AND NORVASC. EXPLAINED RISK AND BENEFITS OF EACH MEDICATION.
--- NOTE | 2020-08-27 21:30 | NUR ---
GPS-RN NOTES: PATIENT REFUSED WEEKLY SKIN BODY ASSESSMENT.
[2020-08-27] MEDS: DIVALPROEX SODIUM 250 MG TABLET.DR PO SCH (22:30)
[2020-08-27] MEDS: QUETIAPINE FUMARATE 100 MG TABLET PO SCH (22:30)
--- NOTE | 2020-08-27 22:44 | NUR ---
GPS-RN NOTES: MEDICATION COMPLIANCE PATIENT REFUSED TO TAKE SEROQUEL AND DEPAKOTE DOSE SCHEDULED FOR TONIGHT. EDUCATED PATIENT REGARDING MEDICATION COMPLIANCE BUT PATIENT CONTINUED TO REFUSE. WILL CONTINUE TO MONITOR.
[2020-08-28] MEDS: LEVOTHYROXINE SODIUM 100 MCG TABLET PO SCH (07:56)
[2020-08-28] MEDS: DOCUSATE SODIUM 100 MG CAPSULE PO SCH ×2 (08:33→16:18)
[2020-08-28] MEDS: TAMSULOSIN 0.4 MG CAP.SR.24H PO SCH ×2 (08:33→16:18)
[2020-08-28] MEDS: DIVALPROEX SODIUM 250 MG TABLET.DR PO SCH ×3 (08:33→16:19)
[2020-08-28] MEDS: QUETIAPINE FUMARATE 100 MG TABLET PO SCH ×2 (08:34→21:00)
[2020-08-28] MEDS: AMLODIPINE BESYLATE 5 MG TABLET PO SCH ×2 (08:34→16:19)
--- NOTE | 2020-08-28 16:19 | NUR ---
GPS RN NOTES PATIENT NOTED W/ EPISODE OF NON-COMPLIANCE W/ MEDICATION INTAKE AND HAVING VITAL SIGNS TAKEN. REFUSED TO TAKE SEROQUEL, DEPAKOTE, COLACE, AND AMLODIPINE MEDICATIONS SCHEDULED. EDUCATED PATIENT REGARDING MEDICATION COMPLIANCE AND IMPORTANCE OF MEDICATIONS BUT PATIENT STILL CONTINUED TO REFUSE. WILL CONTINUE TO MONITOR.
--- NOTE | 2020-08-28 21:04 | NUR ---
GPS-RN NOTES: MEDICATION COMPLIANCE PATIENT REFUSED TO TAKE SEROQUEL DOSE SCHEDULED FOR TONIGHT. EDUCATED PATIENT REGARDING MEDICATION COMPLIANCE AND IMPORTANCE BUT PATIENT STILL CONTINUED TO REFUSE. PATIENT STATED, "NO, I DON'T NEED IT, GO AWAY". WILL CONTINUE TO MONITOR. Addendum: 08/28/20 at 1366 by HAO BAUMANN RN CORRECTION: MEDICATION REFUSAL
[2020-08-29] MEDS: LEVOTHYROXINE SODIUM 100 MCG TABLET PO SCH ×2 (07:30→07:44)
[2020-08-29] MEDS: TAMSULOSIN 0.4 MG CAP.SR.24H PO SCH ×2 (08:16→16:23)
[2020-08-29] MEDS: DOCUSATE SODIUM 100 MG CAPSULE PO SCH ×2 (08:16→16:22)
[2020-08-29] MEDS: DIVALPROEX SODIUM 250 MG TABLET.DR PO SCH ×3 (08:17→16:22)
[2020-08-29] MEDS: AMLODIPINE BESYLATE 5 MG TABLET PO SCH ×2 (08:17→16:22)
[2020-08-29] MEDS: QUETIAPINE FUMARATE 100 MG TABLET PO SCH ×2 (08:17→21:38)
--- NOTE | 2020-08-29 09:00 | NUR ---
RN NOTE- PT MUMBLING TO SELF RESPONDING INTERNALLY PREOCCUPIED, SELECTIVE MED COMPLIANCE PARANOID LABILE FLIGHT OF IDEAS +AH (VOICES)
[2020-08-29] MEDS: LORAZEPAM 0.5 MG TABLET PO PRN ×2 (14:58→22:13)
--- NOTE | 2020-08-29 14:58 | NUR ---
RN NOTE- ANXIETY PRESENT. ATIVAN 0.5 MG GIVEN
--- NOTE | 2020-08-29 22:14 | NUR ---
GPS RN NOTES: PT. IS RESTLESS, PACING, ANXIOUS, C/O OF ANXIETY AND REQUESTED FOR ATIVAN. ATIVAN 0.5MG/1TAB GIVEN PO PRN ORDERED. WILL CONTINUE TO MONITOR.
[2020-08-29] MEDS: TEMAZEPAM 7.5 MG CAPSULE PO PRN (22:49)
--- NOTE | 2020-08-30 06:40 | NUR ---
GPS RN CLOSING NOTES: PATIENT SLEEPING COMFORTABLY ON BED. PATIENT SLEPT 8HR THIS SHIFT. NO S/S OF DISTRESS. RESPIRATION EVEN AND UNLABORED WITH EQUAL RISE AND FALL OF THE CHEST ON ROOM AIR. ALL PATIENT CARE NEEDS HAVE BEEN MET ANTICIPATED. WILL CONTINUE TO MONITOR FOR SAFETY, MOOD AND BEHAVIOR AND ENDORSE TO AM SHIFT.
[2020-08-30 08:00] VITALS: BP 154/65
[2020-08-30] MEDS: DOCUSATE SODIUM 100 MG CAPSULE PO SCH ×3 (09:00→17:00)
[2020-08-30] MEDS: QUETIAPINE FUMARATE 100 MG TABLET PO SCH ×3 (09:00→21:35)
[2020-08-30] MEDS: DIVALPROEX SODIUM 250 MG TABLET.DR PO SCH ×5 (09:00→17:00)
[2020-08-30] MEDS: TAMSULOSIN 0.4 MG CAP.SR.24H PO SCH ×2 (09:49→17:45)
[2020-08-30] MEDS: LEVOTHYROXINE SODIUM 100 MCG TABLET PO SCH (09:50)
[2020-08-30] MEDS: AMLODIPINE BESYLATE 5 MG TABLET PO SCH ×2 (09:50→17:00)
--- NOTE | 2020-08-30 12:20 | NUR ---
SNF Contact: SW contactedLakshmi ([phone]), admissions consultant at [facility], and was informed that the pt can return to their facility once he is stable.
[2020-08-30] MEDS: LORAZEPAM 0.5 MG TABLET PO PRN (14:51)
--- NOTE | 2020-08-30 14:51 | NUR ---
GIVEN ATIVAN FOR AGITATION.
--- NOTE | 2020-08-30 15:20 | NUR ---
Initial Discharge Plan: Pt currently resides at [facility] located at [address] [place] [id number]; ([phone]). Per pt, he would like to return there. SW will work with the pt and the MD regarding appropriate discharge planning. SW will form a safe and proper discharge.
[2020-08-30 16:00] VITALS: BP 105/57
--- NOTE | 2020-08-30 16:22 | NUR ---
SEEMS COMPLACENT WITH STATUS,REFUSING VITAL SIGNS THIS AFTERNOON.
--- NOTE | 2020-08-30 19:30 | NUR ---
GPS RN NOTE, RECEIVED PATIENT AWAKE AND IN BED, NO S/S OR COMPLAINTS OF PAIN AT THIS TIME. PATIENT IS DISPLAYING NO S/S OF APPARENT DISTRESS AT THIS TIME. PATIENT BREATHING IS UNLABORED WITH EQUAL RISE AND FALL OF THE CHEST. PATIENT IS ALERT AND ORIENTED X 1 - 2 ON ROOM AIR WITH A SPO2 95%. PATIENT IS SELECTIVE WITH MEDICATIONS, VERBALLY ABUSIVE, ANXIOUS AT TIMES, DISORGANIZED, UNCOOPERATIVE, AND NEEDS REDIRECTION. PATIENT DENIES SUICIDAL AND HOMICIDAL IDEATIONS AT THIS TIME. PATIENT ASSISTED WITH TURNING AND REPOSITIONING Q2HR AND PRN FOR COMFORT AND CIRCULATION. PATIENT HAS NO NEEDS AT THIS TIME. PATIENT EDUCATED ON THE USE OF THE CALL RODRIGUEZ. PATIENT BED SIDE RAILS UP X 2 FOR SAFETY. PATIENT BED IS LOCKED, LOW, WITH BED ALARM ON. WILL CONTINUE TO MONITOR THIS PATIENT Q15 MINUTES WITH THE HELP OF STAFF TO MAINTAIN SAFETY.
[2020-08-30] MEDS: TEMAZEPAM 7.5 MG CAPSULE PO PRN (21:55)
--- NOTE | 2020-08-30 21:55 | NUR ---
GPS RN NOTE, PATIENT HAS A COMPLAINT OF NOT BEING ABLE TO SLEEP AND IS REQUESTING RESTORIL AT THIS TIME. PATIENT VITAL SIGNS ARE STABLE. GAVE RESTORIL 7.5MG PO HS PRN ORDERED. WILL REASSESS FOR INSOMNIA AND I WILL CONTINUE TO MONITOR THIS PATIENT.
[2020-08-31] MEDS: LEVOTHYROXINE SODIUM 100 MCG TABLET PO SCH (07:30)
[2020-08-31] MEDS: AMLODIPINE BESYLATE 5 MG TABLET PO SCH ×2 (09:00→16:35)
[2020-08-31] MEDS: TAMSULOSIN 0.4 MG CAP.SR.24H PO SCH ×2 (09:00→16:27)
[2020-08-31] MEDS: QUETIAPINE FUMARATE 100 MG TABLET PO SCH ×2 (09:00→21:00)
[2020-08-31] MEDS: DIVALPROEX SODIUM 250 MG TABLET.DR PO SCH ×3 (09:00→16:35)
[2020-08-31] MEDS: DOCUSATE SODIUM 100 MG CAPSULE PO SCH ×2 (09:00→16:35)
--- NOTE | 2020-08-31 09:43 | NUR ---
GPS/RN-NOTES PATIENT REFUSED ALL 0900AM MEDICATIONS INCLUDING VITAL SIGNS. EXPLAIN RISK AND BENEFITS OF MEDICATIONS BUT PATIENT GETS ANGRY USING FOUL LANGUAGES.OFFERED X3
--- NOTE | 2020-08-31 12:44 | NUR ---
GPS/RN-NOTES PATIENT CONTINUE REFUSING MEDICATION ([id number] P.O). OFFERED X3
--- NOTE | 2020-08-31 14:33 | NUR ---
Probable Cause Hearing: Pts [id number] hold was upheld for grave disability.
--- NOTE | 2020-08-31 16:35 | NUR ---
GPS/RN-NOTES PATIENT WAS SELECTIVE WITH MEDICATIONS, TOOK FLOMAX 0.4MG CAP. ONLY. REFUSED ALL OTHER MEDICATIONS SCHEDULED AT 1700 INCLUDING VITAL SIGNS TAKEN. OFFERED X3
--- NOTE | 2020-08-31 19:44 | NUR ---
RN NOTE: REFUSED VITALS PATIENT REFUSED VITALS X 3 DESPITE OF RISKS & BENEFITS EXPLANATIONS. PT. IS NON COMPLAINT, DISHEVELED, EASILY AGITATED, ANXIOUS & RESTLESS. NON REDIRECTABLE.
--- NOTE | 2020-08-31 21:25 | NUR ---
RN NOTE: MEDICINE REFUSAL PATIENT REFUSED TO TAKE SEROQUEL 50 MG AT 2100 X 3 DESPITE OF RISKS & BENEFITS EXPLANATIONS. PT. IS EASILY AGITATED & UNCOOPERATIVE WITH MEDICINES & ADL CARE.
[2020-08-31 22:15] VITALS: BP 149/95
--- NOTE | 2020-08-31 22:15 | NUR ---
RN NOTE PATIENT AGREED TO CHECK HIS VITALS AT THIS TIME 149/95, 82, 18, 98 F, 97% AT ROOM AIR. WILL CONTINUE TO MONITOR FOR ANY CHANGES.
[2020-08-31] MEDS: LORAZEPAM 0.5 MG TABLET PO PRN (22:25)
--- NOTE | 2020-08-31 22:28 | NUR ---
RN NOTE: ANXIETY PATIENT IS ANXIOUS & RESTLESS. PATIENT REQUESTED TO GET ATIVAN AT THIS TIME. PRN ATIVAN 0.5 MG 1 TAB PO ADMINISTERED. WILL CONTINUE TO MONITOR.
[2020-08-31] MEDS: TEMAZEPAM 7.5 MG CAPSULE PO PRN (23:37)
--- NOTE | 2020-08-31 23:38 | NUR ---
RN NOTE: INSOMNIA PATIENT STATED THAT HE IS UNABLE TO SLEEP & REQUESTED TO TAKE SLEEPING MEDICINE. PRN RESTORIL 7.5 MG 1 CAP PO ADMINISTERED. WILL CONTINUE TO MONITOR.
[2020-09-01] MEDS: LEVOTHYROXINE SODIUM 100 MCG TABLET PO SCH (08:13)
[2020-09-01] MEDS: LORAZEPAM 0.5 MG TABLET PO PRN ×2 (08:13→15:19)
[2020-09-01] MEDS: TAMSULOSIN 0.4 MG CAP.SR.24H PO SCH ×2 (08:13→17:00)
--- NOTE | 2020-09-01 08:13 | NUR ---
RN NOTE- ANXIETY PRESENT. REQUESTING PRN. ATIVAN 0.5 MG GIVEN
[2020-09-01] MEDS: DIVALPROEX SODIUM 250 MG TABLET.DR PO SCH ×3 (08:15→17:00)
[2020-09-01] MEDS: DOCUSATE SODIUM 100 MG CAPSULE PO SCH ×2 (08:15→17:00)
[2020-09-01] MEDS: AMLODIPINE BESYLATE 5 MG TABLET PO SCH ×2 (08:15→17:00)
[2020-09-01] MEDS: QUETIAPINE FUMARATE 100 MG TABLET PO SCH (08:15)
--- NOTE | 2020-09-01 09:00 | NUR ---
RN NOTE- PT OPPOSITIONAL TO CARE AND MOST MEDS. SELECTIVELY COMPLIANT, TOLD TO 'F-MYSELF' WHEN QUESTIONING PT ABOUT MED COMPLIANCE AND NEED FOR EFFECTIVE USE OF RX. REISE FILED. PO INTAKE FAIR, PT MUMBLING RESPONDING TO INTERNAL STIMULUS
--- NOTE | 2020-09-01 09:09 | NUR ---
Dr. Sweet made aware that [facility] scheduled for 1:00 PM today (09/01/20).
--- NOTE | 2020-09-01 09:45 | NUR ---
RN NOTE- DENYS EFFECTIVE
[2020-09-01] MEDS ORDERED: OLANZAPINE 10 MG VIAL IM PRN (14:30)
--- NOTE | 2020-09-01 15:19 | NUR ---
RN NOTE- C/O ANXIETY. ATIVAN 0.5 MG GIVEN
[2020-09-01] MEDS: OLANZAPINE 10 MG TABLET PO SCH (18:00)
--- NOTE | 2020-09-01 18:22 | NUR ---
RN NOTE- PT REFUSING RX AT 1800. PT REISED. ZYPREXA 10 MG IM TO BE GIVEN AND PT BECAME COMBATIVE AND STRUCK STAFF. SECURITY AT BEDSIDE. PT GIVEN IM.
--- NOTE | 2020-09-01 19:32 | NUR ---
GPS RN NOTE PATIENT A/O X1 WITH CONFUSION. WALKING IN HALLWAY WITH WALKER. ON ROOM AIR TOLERATING WELL WITH NO SOB. PATIENT C/O UPSET STOMACH; OFFERED MEDICATION AND FOOD BUT REFUSED. NO S/S OF DISTRESS AT THIS TIME. PATIENT IS UNCOOPERATIVE, DISORGANIZED, AND ANXIOUS. DENIES SI AND HI AT THIS TIME. ALL NEEDS MET AT THIS TIME. SAFETY MEASURES IN PLACE: BED IN LOWEST LOCKED POSITION; SIDE RAILS UP X2, BED ALARMS ON, WALKER WITHIN EASY REACH. WILL CONTINUE TO MONITOR BEHAVIOR AND PLAN OF CARE
--- NOTE | 2020-09-01 21:40 | NUR ---
RN notes Pt refused VS. Offered multiple times. Explained risks and benefits. Pt keep refusing. Pt is non compliant with care and easily agitated. Will continue to monitor.
[2020-09-02] MEDS: TAMSULOSIN 0.4 MG CAP.SR.24H PO SCH ×2 (08:25→16:17)
[2020-09-02] MEDS: LORAZEPAM 0.5 MG TABLET PO PRN ×3 (08:25→21:21)
[2020-09-02] MEDS: LEVOTHYROXINE SODIUM 100 MCG TABLET PO SCH (08:25)
[2020-09-02] MEDS: DOCUSATE SODIUM 100 MG CAPSULE PO SCH ×2 (08:27→16:11)
[2020-09-02] MEDS: DIVALPROEX SODIUM 250 MG TABLET.DR PO SCH ×3 (08:27→16:11)
[2020-09-02] MEDS: AMLODIPINE BESYLATE 5 MG TABLET PO SCH ×2 (08:27→16:22)
--- NOTE | 2020-09-02 09:13 | NUR ---
GPS RN NOTE: PATIENT RESTING IN BED AWAKE NO S/S OR COMPLAINTS OF PAIN AT THIS TIME. PATIENT IS A & O X 1 - 2, CONFUSED, PARANOID, UNCOOPERATIVE WITH ADL CARE & VITALS, DISHEVELED, UNKEMPT, PATIENT IS SELECTIVE WITH MEDICATIONS, ANXIOUS AT TIMES,REQUEST ATIVAN DENIES SI/HI WILL CONTINUE TO MONITOR THIS PATIENT Q15 MINUTES WITH THE HELP OF STAFF TO MAINTAIN SAFETY.
--- NOTE | 2020-09-02 14:52 | NUR ---
GPS RN NOTE; PATIENT REQUESTING ATIVAN FOR ANXIETY , PER MD ORDER ATIVAN 0.5MG PO PRN GIVEN WILL CONTINUE MONITORING
[2020-09-02 16:00] VITALS: BP 129/77
[2020-09-02] MEDS: OLANZAPINE 10 MG TABLET PO SCH (17:42)
--- NOTE | 2020-09-02 21:22 | NUR ---
GPS RN NOTES: PATIENT C/O ANXIETY. ATIVAN 0.5MG 1TAB GIVEN PO PRN ORDERED AT 2120. WILL CONTINUE TO MONITOR
[2020-09-02] MEDS: TEMAZEPAM 7.5 MG CAPSULE PO PRN (22:29)
--- NOTE | 2020-09-03 00:40 | NUR ---
GPS RN NOTES: PATIENT REQUESTED FOR SLEEP MEDICATION D/T INSOMNIA. RESTORIL 7.5MG/1CAP GIVEN PO PRN ORDERED 2228. WILL CONTINUE TO MONITOR.
--- NOTE | 2020-09-03 06:49 | NUR ---
GPS RN CLOSING NOTES: PATIENT SLEEPING COMFORTABLY IN BED. PATIENT SLEPT 9HR THIS SHIFT. NO S/S OF DISTRESS. RESPIRATION EVEN AND UNLABORED WITH EQUAL RISE AND FALL OF THE CHEST ON ROOM AIR. ALL PATIENT CARE NEEDS HAVE BEEN MET ANTICIPATED. BED IN LOWEST POSITION AND LOCKED WITH 2 SIDE RAILS UP. WILL CONTINUE TO MONITOR FOR SAFETY, MOOD AND BEHAVIOR AND ENDORSE TO AM SHIFT.
[2020-09-03] MEDS: LEVOTHYROXINE SODIUM 100 MCG TABLET PO SCH (07:30)
[2020-09-03] MEDS: AMLODIPINE BESYLATE 5 MG TABLET PO SCH ×2 (09:00→17:00)
[2020-09-03] MEDS: DOCUSATE SODIUM 100 MG CAPSULE PO SCH ×3 (09:00→17:00)
[2020-09-03] MEDS: DIVALPROEX SODIUM 250 MG TABLET.DR PO SCH ×4 (09:00→17:00)
[2020-09-03] MEDS: TAMSULOSIN 0.4 MG CAP.SR.24H PO SCH ×2 (09:41→17:44)
[2020-09-03] MEDS: LORAZEPAM 0.5 MG TABLET PO PRN ×2 (13:21→20:51)
[2020-09-03] MEDS: OLANZAPINE 10 MG TABLET PO SCH (17:44)
--- NOTE | 2020-09-03 20:58 | NUR ---
GPS RN NOTE; PATIENT RESTLESS, ANXIOUS, REQUESTED ATIVAN D/T ANXIETY, ATIVAN 0.5MG/1TAB GIVEN PO PRN ORDERED AT 2050. WILL CONTINUE TO MONITOR.
--- NOTE | 2020-09-04 06:37 | NUR ---
GPS RN CLOSING NOTES: PATIENT SLEEPING COMFORTABLY IN BED. PATIENT SLEPT 6HR THIS SHIFT. PATIENT REFUSED LABS AND WEEKLY SKIN ASSESSMENT THIS SHIFT. NO C/O PAIN THIS SHIFT. NO S/S OF DISTRESS. RESPIRATION EVEN AND UNLABORED WITH EQUAL RISE AND FALL OF THE CHEST ON ROOM AIR. ALL PATIENT CARE NEEDS HAVE BEEN MET ANTICIPATED. BED IN LOWEST POSITION AND LOCKED WITH 2 SIDE RAILS UP. WILL CONTINUE TO MONITOR FOR SAFETY, MOOD AND BEHAVIOR AND ENDORSE TO AM SHIFT.
[2020-09-04] MEDS: DOCUSATE SODIUM 100 MG CAPSULE PO SCH ×2 (09:00→17:00)
[2020-09-04] MEDS: DIVALPROEX SODIUM 250 MG TABLET.DR PO SCH ×3 (09:00→17:00)
[2020-09-04] MEDS: LEVOTHYROXINE SODIUM 100 MCG TABLET PO SCH (10:09)
[2020-09-04] MEDS: TAMSULOSIN 0.4 MG CAP.SR.24H PO SCH ×2 (10:11→17:00)
[2020-09-04] MEDS: AMLODIPINE BESYLATE 5 MG TABLET PO SCH ×2 (10:13→17:00)
[2020-09-04] MEDS: OLANZAPINE 10 MG TABLET PO SCH (18:06)
--- NOTE | 2020-09-05 06:29 | NUR ---
GPS RN CLOSING NOTES: PATIENT CURRENTLY SLEEPING COMFORTABLY IN BED. PATIENT SLEPT 5.5HR THIS SHIFT. NO C/O PAIN THIS SHIFT. NO S/S OF DISTRESS. RESPIRATION EVEN AND UNLABORED WITH EQUAL RISE AND FALL OF THE CHEST ON ROOM AIR. ALL PATIENT CARE NEEDS HAVE BEEN MET ANTICIPATED. WILL CONTINUE TO MONITOR FOR SAFETY, MOOD AND BEHAVIOR AND ENDORSE TO AM SHIFT.
[2020-09-05] MEDS: DIVALPROEX SODIUM 250 MG TABLET.DR PO SCH ×4 (09:00→17:00)
[2020-09-05] MEDS: DOCUSATE SODIUM 100 MG CAPSULE PO SCH ×3 (09:00→17:00)
[2020-09-05] MEDS: AMLODIPINE BESYLATE 5 MG TABLET PO SCH ×2 (09:00→17:52)
[2020-09-05] MEDS: TAMSULOSIN 0.4 MG CAP.SR.24H PO SCH ×2 (09:35→17:53)
[2020-09-05] MEDS: LEVOTHYROXINE SODIUM 100 MCG TABLET PO SCH (09:35)
--- NOTE | 2020-09-05 14:10 | NUR ---
SNF Contact: LEW contacted Lakshmi ([phone]) at [facility] and she confirmed that the pt can return the following day. LEW faxed updated notes to [phone].
[2020-09-05 16:00] VITALS: BP 136/84
[2020-09-05] MEDS: OLANZAPINE 10 MG TABLET PO SCH (17:51)
[2020-09-05 21:20] VITALS: BP 159/85
[2020-09-05] MEDS: TEMAZEPAM 7.5 MG CAPSULE PO PRN (21:56)
--- NOTE | 2020-09-05 21:56 | NUR ---
GPS-RN NOTES: INSOMNIA PATIENT C/O INABILITY TO SLEEP. ADMINISTERED RESTORIL 7.5MG PO ORDERED. WILL CONTINUE TO MONITOR.
[2020-09-06] MEDS: TAMSULOSIN 0.4 MG CAP.SR.24H PO SCH (08:19)
[2020-09-06] MEDS: LEVOTHYROXINE SODIUM 100 MCG TABLET PO SCH (08:19)
[2020-09-06] MEDS: AMLODIPINE BESYLATE 5 MG TABLET PO SCH (08:21)
[2020-09-06] MEDS: DOCUSATE SODIUM 100 MG CAPSULE PO SCH (08:21)
[2020-09-06] MEDS: DIVALPROEX SODIUM 250 MG TABLET.DR PO SCH ×2 (08:21→12:02)
--- NOTE | 2020-09-06 13:24 | NUR ---
Discharge Note: Pt will be discharged to [facility] located at [address] [place] [address]; . Pt will be in Rm 104A. Pt will be discharged via [facility] (Trip# [phone]) at 2PM. There was no one to notify about this pts discharge. Upon discharge, the pt appears to be in a depressed mood and presents with an irritated affect. Pt denies both suicidal and homicidal ideation as well as auditory and visual hallucinations. Pt appears to be oriented x2 and overall appears to be confused and disorganized. Pt appears to be ungroomed and disheveled. Pt will be under the care of his psychiatrist, Dr. Sweet, located at [address], [address] [place] [address]; and his search director, Dr. Bird, located at [address] [address], [place] [address]; . The choice of vendor form and multidisciplinary exit care form were done, printed, signed, and given to the patient.
--- NOTE | 2020-09-06 14:03 | NUR ---
GPS DISCHARGE NOTE: Pt will be discharged to [facility] located at [address] [place] [address]; . Pt will be in Rm 104A. Pt will be discharged via [facility] (Trip# [phone]) at 2PM. There was no one to notify about this pts discharge. PATIENT IN STABLE CONDITION NO S/S DISTRESS NOTED, PATIENT DENIES SI/HI AVH, AMBULATORY WITH WALKER , REFUSED SKIN ASSESSMENT,VSS. DC HOLD , PATIENT AWARE AND AGREED FOR DISCHARGE. EXIT CARE DONE PRINTED SIGN AND GIVEN TO PT. ALL BELONGINGS REFUSED TO PT , REPORT GIVEN TO TOBI FRANCISCO IN THE FACILITY. DR HURLEY AND DR ARCHER NOTIFIED DC PT WITH CONTINUE MEDICATIONS.
== END 2020-09-06 14:00 | DRG 885 ==
LOC: GPS 01:21
PROVIDERS: ADMIT Psychiatry & Neurology Psychiatry; ATTEND Student in an Organized Health Care Education/Training Program
DX: F25.9 Schizoaffective disorder, unspecified (principal); E87.6 Hypokalemia; E03.9 Hypothyroidism, unspecified; D63.8 Anemia in other chronic diseases classified elsewhere; N40.0 Benign prostatic hyperplasia without lower urinary tract symptoms; I25.10 Atherosclerotic heart disease of native coronary artery without angina pectoris; Z20.822 Contact with and (suspected) exposure to COVID-19; F29 Unspecified psychosis not due to a substance or known physiological condition; I10 Essential (primary) hypertension; Z91.14 Patient's other noncompliance with medication regimen; R79.89 Other specified abnormal findings of blood chemistry
CPT/HCPCS: 36415; 80048-TC; 80076-TC; 85025-TC; 87081-TC; C9803; G0480; J3490

== ENCOUNTER 2020-08-27 01:37 | Emergency (ER) | payer MEDICARE, OTHER ==
[~2020-08-27] VITALS: Ht 170.2 cm; Wt 65.8 kg
[2020-08-27 01:37] VITALS: BP 132/78
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
--- NOTE | 2020-08-27 02:17 | NUR ---
BLOOD COLLECTED AND SENT TO THE LAB.
[2020-08-27 02:28] LABS: CALCIUM, SERUM 8.7 mg/dL (8.5-10.1); CARBON DIOXIDE 26 mmol/L (21-32); CHLORIDE 103 mmol/L (98-107); CREATININE 0.9 mg/dL (0.6-1.3); GLUCOSE 110 mg/dL (74-106); POTASSIUM 3.4 mmol/L (3.5-5.1); SODIUM SERUM 139 mmol/L (136-145); UREA NITROGEN, BLOOD 22 mg/dL (7-18)
[2020-08-27 02:31] LABS: BASOPHILS % (AUTO) 0.3 % (0.0-2.0); EOSINOPHILS % (AUTO) 0.7 % (0.0-6.0); HEMATOCRIT 39 % (39-51); LYMPHOCYTES # (AUTO) 1.3 /CMM (0.8-4.8); LYMPHOCYTES % (AUTO) 12.7 % (20.0-44.0); MEAN CORPUSCULAR HGB CONC 33 g/dl (31.0-36.0); MEAN CORPUSCULAR VOLUME 88 fL (80-96); MONOCYTES # (AUTO) 0.9 /CMM (0.1-1.30); NEUTROPHILS # (AUTO) 8.1 /CMM (1.8-8.9); NEUTROPHILS % (AUTO) 77.3 % (43.0-81.0); PLATELET COUNT (AUTO) 271 /CMM (150-450); RED BLOOD CELL COUNT(AUTO) 4.43 MIL/uL (4.5-6.0); WHITE BLOOD COUNT (AUTO) 10.5 K/uL (4.3-11.0)
[2020-08-27 02:34] LABS: ALANINE AMINOTRANSFERASE 15 U/L (12-78); ALBUMIN 3.4 g/dL (3.4-5.0); ALCOHOL, BLOOD < 3 mg/dL (0-0); ALKALINE PHOSPHATASE 66 U/L (46-116); ASPARTATE AMINOTRANSFERASE 12 U/L (15-37); BILIRUBIN,DIRECT 0.1 mg/dL (0.0-0.2); BILIRUBIN,TOTAL 0.3 mg/dL (0.2-1.0); TOTAL PROTEIN, SERUM 7.1 g/dL (6.4-8.2)
[2020-08-27 02:35] LABS: ACETAMINOPHEN < 2 ug/ml (10-30)
--- NOTE | 2020-08-27 03:07 | NUR ---
REPORT GIVEN TO JUNIOR FRANCISCO FOR WILLY.
--- NOTE | 2020-08-27 03:43 | NUR ---
[facility]
[2020-08-27] MEDS ORDERED: QUET25TA PO (04:52)
[2020-08-27] MEDS ORDERED: BISA10SU11 RC (07:36)
[2020-08-27] MEDS ORDERED: DOCU-141 PO (07:36)
[2020-08-27] MEDS ORDERED: ACET-2605 PO (07:36)
[2020-08-27] MEDS ORDERED: NA P133E RC (07:36)
== END 2020-08-27 03:49 ==
LOC: ER 01:39
DX: F29 Unspecified psychosis not due to a substance or known physiological condition (principal); K21.9 Gastro-esophageal reflux disease without esophagitis; M19.90 Unspecified osteoarthritis, unspecified site; I10 Essential (primary) hypertension; Z88.0 Allergy status to penicillin; Z79.899 Other long term (current) drug therapy; Z20.822 Contact with and (suspected) exposure to COVID-19
CPT/HCPCS: 36415; 80048-TC; 80076-TC; 85025-TC; 87081-TC; C9803; G0480